=== PATIENT | female | born 1960 | race Native Hawaiian/Other Pacific Islander ===

== ENCOUNTER 2018-08-21 15:41 | Emergency (ER) | payer OTHER ==
[~2018-08-21] VITALS: Ht 165.1 cm; Wt 106.6 kg
[2018-08-21 15:48] VITALS: TEMP 98.1
[2018-08-21 19:17] VITALS: BP 156/76
== END 2018-08-21 19:17 | disposition home or self-care (01) ==
LOC: ED 15:41
DX: S09.90XA Unspecified injury of head, initial encounter (principal); S60.221A Contusion of right hand, initial encounter; W24.0XXA Contact with lifting devices, not elsewhere classified, initial encounter
CPT/HCPCS: 80307; 99283

== ENCOUNTER 2020-07-04 13:02 | Emergency (ER) | payer OTHER ==
[~2020-07-04] VITALS: Ht 165.1 cm; Wt 99.8 kg
[2020-07-04 13:13] VITALS: BP 171/89; TEMP 98.9
== END 2020-07-04 14:53 | disposition home or self-care (01) ==
LOC: ED 13:02
PROC: 0HQGXZZ Repair Left Hand Skin, External Approach (ICD-10-PCS; principal; 2020-07-04)
DX: S61.412A Laceration without foreign body of left hand, initial encounter (principal); W26.0XXA Contact with knife, initial encounter; Y92.89 Other specified places as the place of occurrence of the external cause
CPT/HCPCS: 99282

== ENCOUNTER 2020-07-11 18:16 | Emergency (ER) | payer OTHER ==
[~2020-07-11] VITALS: Ht 165.1 cm; Wt 98.9 kg
[2020-07-11 18:20] VITALS: BP 159/80; TEMP 98.9
== END 2020-07-11 18:51 | disposition home or self-care (01) ==
LOC: ED 18:16
PROC: 0HQGXZZ Repair Left Hand Skin, External Approach (ICD-10-PCS; principal; 2020-07-11)
DX: Z48.02 Encounter for removal of sutures (principal); T81.30XD Disruption of wound, unspecified, subsequent encounter

== ENCOUNTER 2021-01-05 09:36 | Outpatient (CLI) | payer OTHER | END 2021-01-05 19:50 | disposition home or self-care (01) | LOC: MAMMO 09:36 | PROVIDERS: ATTEND Obstetrics & Gynecology | DX: Z12.31 Encounter for screening mammogram for malignant neoplasm of breast (principal) ==